=== PATIENT | female | born 1980 | race Caucasian/White ===

== ENCOUNTER 2021-06-03 18:53 | Emergency (ER) | payer MEDICARE ==
[~2021-06-03] VITALS: Ht 144.8 cm; Wt 60.0 kg
[2021-06-03] MEDS ORDERED: IV NORMAL SALINE 1000ML BAG 1,000 ML IV ONE (19:30)
[2021-06-03] MEDS ORDERED: PRED20TA PO (19:43)
[2021-06-03] MEDS ORDERED: DIPH25CA58 PO (19:43)
[2021-06-03] MEDS ORDERED: FAMO-63 PO (19:43)
--- NOTE | 2021-06-03 19:43 | PHYS DOC ---
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 Patient reports she was doing some maternity photos with her daughter and was walking through a field of sunflowers. Patient reports she suddenly felt a sharp pain on her back and then on her right foot. Patient reports anaphylactic allergy to bee/wasp stings. Patient reports she did not actually see a bee or wasp. Patient reports she suddenly felt her lungs and throat tightening and had difficulty breathing. EMS reports some respiratory distress upon their arrival. Auto inject epinephrine was provided by EMS x2 along with steroid. Patient reports he typically carries EpiPen's in her car but recently got a new vehicle and forgot to pack them. Patient reports interval improvement of symptoms upon arrival. Patient does report rash to her back and chest. Denies other complaint. Review of Systems: Review of Systems: Constitutional: Denies fever or chills Eyes: Denies redness or eye pain HENT: Denies nasal congestion or sore throat Respiratory: Denies cough; reports shortness of breath Cardiovascular: Denies chest pain or palpitations GI: Denies abdominal pain, nausea, or vomiting : Denies dysuria or hematuria Musculoskeletal: Denies back pain or joint pain Integument: Reports swelling Neurologic: Denies headache, focal weakness or sensory changes Complete systems were reviewed and found to be within normal limits, except as documented in this note. Heart Score: C/O Chest Pain: N/A Current Medications: Current Medications Medications (Trade) Dose Ordered Sig/[facility] Start Time Stop Time Status Last Admin Dose Admin Dexamethasone Sodium Phosphate (Decadron) 10 mg 1X ONCE 06/03/21 19:15 06/03/21 19:16 UNV Famotidine (Pepcid Vial) 20 mg 1X ONCE 06/03/21 19:15 06/03/21 19:16 UNV Sodium Chloride 1,000 ml @ 1,000 mls/hr 1X ONCE 06/03/21 19:15 06/03/21 20:14 UNV Allergies: Allergies: Allergies Coded Allergies Type Severity Reaction Last Updated Verified morphine Allergy Severe Anaphylaxis 06/03/21 Yes promethazine Allergy Severe Anaphylaxis 06/03/21 Yes Uncoded Allergies Type Severity Reaction Last Updated Verified BEE STINGS Allergy Severe Anaphylaxis 06/03/21 WASP STINGS Allergy Severe Anaphylaxis 06/03/21 Physical Exam: PE: Constitutional: Well developed, well nourished, no acute distress, non-toxic appearance HENT: Normocephalic, atraumatic, mucous membranes tacky, no tongue swelling, handling secretions normally, Eyes: Conjunctiva normal, no discharge Neck: Normal range of motion, supple, no stridor Lungs & Thorax: No respiratory distress, equal chest rise and fall, CTAB Abdomen: Soft, no tenderness Skin: Warm, dry, no erythema, no rash Extremities: No tenderness, ROM intact, right foot edema, left BKA Neurologic: Alert and oriented X 3, no focal deficits noted Psychologic: Affect normal, judgment normal EKG: EKG: @1918 NSR at 81bpm, NO ST elevation, QRS 80ms, QT/QTc 370/435ms, nonspecific t wave inversion III Radiology/Procedures: Radiology/Procedures: [] Course & Med Decision Making: Course & Med Decision Making Patient presents via EMS after allergic reaction to bee sting that occurred just prior to arrival. Patient does have anaphylaxis and normally carries auto inject epinephrine. Patient reports her new car she forgot to pack her epi pens. Patient reports she was in a sunflower field and felt like she got stung to her back and to her right toe. EMS noted patient with difficulty breathing and sensation of throat swelling. Auto inject epinephrine provided x2. Patient also received Benadryl per EMS in route. Upon arrival patient with interval improvement of symptoms. Patient handling secretions and no respiratory distress. Patient placed on monitor and EKG obtained given patient had received doses of epinephrine. Blood pressure noted to be low. Patient reports that is normal for her. IV fluid hydration given. Empiric steroid and Pepcid also provided. Patient monitored in department without any cardiac changes. Blood pressure did improve. Patient stable for discharge with outpatient follow-up with PCP. Discussed findings and plan with patient, who acknowledges understanding and agreement. Tiny Disclaimer: Tiny Disclaimer: This electronic medical record was generated, in whole or in part, using a voice recognition dictation system. Departure Departure Impression: Primary Impression: Allergic reaction to bee sting Disposition: HOME / SELF CARE / HOMELESS Condition: IMPROVED Patient Instructions: Anaphylactic Reaction, Tutl-vd-Akcb, Bee, Wasp, or Hornet Sting Scripts Epinephrine (EPIPEN 2-LYNETTE) 0.3 Mg/0.3 Ml Auto.injct 1 SYR IM ONCE PRN for ANAPHYLAXIS for 1 Day, #1 PACKET 0 Refills Prov: HOUSTON BURROWS DO 06/03/21 Diphenhydramine Hcl (BENADRYL) 25 Mg Capsule 1 CAP PO Q4-6HRS PRN for RASH, #30 CAP 0 Refills Prov: HOUSTON BURROWS DO 06/03/21 Famotidine (PEPCID) 20 Mg Tablet 20 MG PO BID for 5 Days, #10 TAB Prov: HOUSTON BURROWS DO 06/03/21 Prednisone (PREDNISONE) 20 Mg Tablet 2 TAB PO DAILY, #8 TAB Prov: HOUSTON BURROWS DO 06/03/21 HOUSTON BURROWS DO Jun 03, 2021 19:43
[2021-06-03] MEDS ORDERED: FAMOTIDINE 20 MG/2 ML VIAL IVP ONE (19:45)
[2021-06-03] MEDS ORDERED: DEXAMETHASONE SOD PHOS 4 MG/ML VIAL IVP ONE (19:45)
[2021-06-03 20:53] VITALS: BP 86/59
[2021-06-03] MEDS ORDERED: EPIPEN 2-P0.3 MG/0.3 IM (21:13)
[2021-06-03] MEDS ORDERED: KETOROLAC 15 MG/ML VIAL. IVP ONE (21:15)
--- NOTE | 2021-06-04 00:48 | EKG ---
[facility] [address] [place] [id number] Test Date: 2021-06-03 Test Time: 19:18:56 Pat Name: KHANH ZAMBRANO Department: Room: Gender: F Tester Compressed Gases: : 1980 Requested By: HOUSTON BURROWS Order Number: [id number] Reading MD: Measurements Intervals [place] Rate: 81 P: 21 MO: 134 QRS: -12 QRSD: 80 T: 31 QT: 370 QTc: 435 Interpretive Statements SINUS RHYTHM LEFTWARD AXIS QRS(T) CONTOUR ABNORMALITY CONSISTENT WITH ANTEROSEPTAL INFARCT AGE UNDETERMINED ABNORMAL ECG RI6.02 No previous ECG available for comparison
== END 2021-06-03 21:30 | disposition home or self-care (01) ==
LOC: ER 18:53
DX: T63.441A Toxic effect of venom of bees, accidental (unintentional), initial encounter (principal); T78.49XA Other allergy, initial encounter; Z88.5 Allergy status to narcotic agent; Z88.8 Allergy status to other drugs, medicaments and biological substances; Z91.030 Bee allergy status; Z91.038 Other insect allergy status; Y92.89 Other specified places as the place of occurrence of the external cause
CPT/HCPCS: 93005; 96361; 96374; 96375; 99285; J1100; J1885; J3490; J7030